=== PATIENT | female | born 1975 | race Caucasian/White ===

== ENCOUNTER 2016-07-11 20:28 | Emergency (ER) | payer MEDICAID ==
[2016-07-11 20:52] VITALS: BP 119/80; PULSE 72; RESP 20; TEMP 98.7; O2SAT 100
[2016-07-11] MEDS ORDERED: Dexamethasone 4 mg/1 ml IM STA (21:07)
[2016-07-11] MEDS ORDERED: Dexamethasone 4 mg/1 ml ONE (21:14)
--- NOTE | 2016-07-11 21:29 | C.PDOC ---
History Of Present Illness 41 year old patient presents to the ED complaining of neck pain that started yesterday. Patient reports she woke up this morning with a stiff neck and with difficulty turning her head side to side. Patient denies any trauma, fever, numbness, weakness, nausea, or vomiting. Time Seen by Provider: 07/11/16 20:52 Chief Complaint (Nursing): Back Pain History Per: Patient History/Exam Limitations: no limitations Onset/Duration Of Symptoms: Days (1) Current Symptoms Are (Timing): Still Present Quality Of Discomfort: Sharp, "Pain" Severity: Mild Pain Scale Rating Of: 6 Previous Symptoms: Neck Pain Associated Symptoms: None. denies: Incontinence, New Weakness, New Numbness Exacerbating Factor(s): Turning, Movement Recent travel outside of the [place]: No Past Medical History Reviewed: Historical Data, Nursing Documentation, Vital Signs Vital Signs: Last Vital Signs Temp 98.7 F 07/11/16 20:47 Pulse 72 07/11/16 20:47 Resp 20 07/11/16 20:47 BP 119/80 07/11/16 20:47 Pulse Ox 100 07/11/16 22:01 - Medical History PMH: No Chronic Diseases Family History: States: No Known Family Hx - Social History Hx Alcohol Use: No Hx Substance Use: No - Immunization History Hx Tetanus Toxoid Vaccination: No Hx Influenza Vaccination: No Hx Pneumococcal Vaccination: No Review Of Systems Except As Marked, All Systems Reviewed And Found Negative. Constitutional: Negative for: Fever Gastrointestinal: Negative for: Nausea, Vomiting Musculoskeletal: Positive for: Neck Pain (left side) Neurological: Negative for: Weakness, Numbness Physical Exam - Physical Exam Appears: Non-toxic, No Acute Distress Skin: Warm, Dry, No Rash Head: Atraumatic, Normacephalic Eye(s): bilateral: Normal Inspection, PERRL, EOMI Ear(s): Bilateral: Normal Nose: Normal Oral Mucosa: Moist Throat: Normal Neck: Decreased ROM (pain with turning the neck to the left side), Paracervical Tenderness (left), Supple, Other (tenderness to the left trapezius muscle; (+) muscle spasm) Chest: Symmetrical Cardiovascular: Rhythm Regular, No Friction Rub, No Murmur Respiratory: Normal Breath Sounds, No Rales, No Rhonchi, No Wheezing Back: No CVA Tenderness, No Vertebral Tenderness, No Paraspinal Tenderness Extremity: Normal ROM, No Swelling Pulses: Left Dorsalis Pedis: Normal, Right Dorsalis Pedis: Normal Neurological/Psych: Oriented x3, Normal Speech, Normal Cognition, Normal Motor, Normal Sensation Gait: Steady ED Course And Treatment O2 Sat by Pulse Oximetry: 100 (RA) Pulse Ox Interpretation: Normal Progress Note: Decadron and Toradol are given. On re-exam, the patient reports improvement of symptoms. Lungs are CTA, heart is RRR, abdomen is soft, non- tender and patient is tolerating PO well. Patient is discharged and instructed to follow up with PMD. Return if symptoms worsen. Medical Decision Making Medical Decision Making: On re-exam, the patient reports improvement of symptoms. Lungs are CTA, heart is RRR, abdomen is soft, non-tender and patient is tolerating PO well. Follow up with the medical doctor within 1-2 days. Return if worsened. Disposition - Disposition Referrals: [facility] at [facility] [Outside] Disposition: HOME/ ROUTINE Disposition Time: 22:00 Condition: GOOD Additional Instructions: Follow up with the medical doctor within 1-2 days. Return if worsened. 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 - Scribe Statement The provider has reviewed the documentation as recorded by the Scribe Kim Linares All medical record entries made by the Scribe were at my direction and personally dictated by me. I have reviewed the chart and agree that the record accurately reflects my personal performance of the history, physical exam, medical decision making, and the department course for this patient. I have also personally directed, reviewed, and agree with the discharge instructions and disposition.
== END 2016-07-11 22:11 | disposition home or self-care (01) ==
LOC: C.ER 20:28
DX: M43.6 Torticollis (principal); S16.1XXA Strain of muscle, fascia and tendon at neck level, initial encounter; X58.XXXA Exposure to other specified factors, initial encounter
CPT/HCPCS: 96372; 99283; J1100; J1885

== ENCOUNTER 2018-06-23 14:46 | Emergency (ER) | payer OTHER, MEDICAID ==
[2018-06-23 14:54] VITALS: TEMP 98.4; O2SAT 100
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
[2018-06-23] MEDS ORDERED: Lidocaine 5% Patch TD STA (15:37)
[2018-06-23] MEDS ORDERED: Lidocaine 5% Patch TD ONE (15:43)
[2018-06-23 16:19] VITALS: BP 116/77; PULSE 67; RESP 18
== END 2018-06-23 16:19 | disposition home or self-care (01) ==
LOC: C.ER 14:46
DX: M79.10 Myalgia, unspecified site (principal)